=== PATIENT | female | born 1960 | race Two or more races ===

== ENCOUNTER 2020-11-16 09:36 | Emergency (ER) | payer BC ==
[~2020-11-16] VITALS: Ht 162.6 cm; Wt 65.8 kg
[2020-11-16 09:45] VITALS: BP 183/93
--- NOTE | 2020-11-16 09:45 | NUR ---
AT BEDSIDE FOR EVAL.
[2020-11-16] MEDS ORDERED: IBUPROFEN 600 MG TABLET ONE (09:51)
[2020-11-16] MEDS ORDERED: IBUPROFEN 600 MG TABLET PO ONE (10:00)
--- NOTE | 2020-11-16 10:20 | NUR ---
[employer] AT BEDSIDE FOR EVAL.
[2020-11-16] MEDS ORDERED: IBUP-1957 PO (11:00)
--- NOTE | 2020-11-16 11:12 | NUR ---
CALLED FOR BINDER
== END 2020-11-16 11:18 | disposition home or self-care (01) ==
LOC: ER 09:40
DX: M25.551 Pain in right hip (principal); M54.2 Cervicalgia; M54.5 Low back pain; I10 Essential (primary) hypertension; E11.9 Type 2 diabetes mellitus without complications; Z88.5 Allergy status to narcotic agent; Z60.2 Problems related to living alone; Z79.899 Other long term (current) drug therapy; V49.49XA Driver injured in collision with other motor vehicles in traffic accident, initial encounter; Y93.89 Activity, other specified; Y92.488 Other paved roadways as the place of occurrence of the external cause; Y99.8 Other external cause status
CPT/HCPCS: 72040-TC; 72100-TC; 73502; 82962-TC